=== PATIENT | female | born 1985 | race Caucasian/White ===

== ENCOUNTER 2019-07-23 09:00 | Outpatient (CLI) | payer BC, SELFPAY ==
[2019-07-23 09:48] LABS: Add Urine Microscopic? YES; Appearance Urine Cloudy (Clear); Bacteria Urine Trace /hpf; Bilirubin Urine Negative (Negative); Blood Urine 3+ (Negative); Color Urine Yellow (Yellow); Glucose Urine UA Negative (Negative); Ketones Urine Negative (Negative); Leukocyte Esterase Ur Negative LEU/UL (Negative); Mucus Urine Heavy /lpf; Nitrate Urine Negative (Negative); Protein Urine 1+ mg/dL (Negative); Squamous Epithelial Cell Urine Many /hpf (Few); Urobilinogen Urine Negative mg/dL (<2.0)
== END 2019-07-23 09:01 | disposition home or self-care (01) ==
LOC: ANHLAB 09:03
PROVIDERS: PCP Internal Medicine; Visit Provider Internal Medicine
DX: N39.0 Urinary tract infection, site not specified (principal)
CPT/HCPCS: 81001

== ENCOUNTER 2020-01-18 14:05 | Outpatient (CLI) | payer BC, SELFPAY ==
--- NOTE | 2020-01-18 14:23 | ECG_ITS ---
Measurements Intervals [place] Rate: 69 P: 37 [place]: 125 QRS: 29 QRSD: 92 T: 19 QT: 373 QTc: 401 Interpretive Statements SINUS RHYTHM MINIMAL Q WAVES- HIGH LATERAL LEADS BASELINE ARTIFACT- I, III, AVL BORDERLINE ECG Electronically Signed On 01-18-2020 14:39:49 CDT by Wyatt Casper D.O.
[2020-01-18 15:03] LABS: Basophils Absolute Auto 0.1 K/mm3 (0.0-0.1); Basophils Percent Auto 0.7 % (0.2-1.2); Eosinophils Absolute Auto 0.1 K/mm3 (0-0.3); Eosinophils Percent Auto 1.3 % (0-4.4); Hematocrit 38.7 % (37.0-47.0); Hemoglobin 12.9 g/dL (12.0-15.0); Immature Granulocyte Absolute 0.02 K/mm3 (0.00-0.031); Immature Granulocyte Percent A 0.3 % (0-0.5); Lymphocytes Absolute Auto 1.73 K/mm3 (0.9-3.2); Lymphocytes Percent Auto 24.1 % (18.3-44.2); Mean Corpuscular HGB Conc 33.3 g/dl (32-36); Mean Corpuscular Hemoglobin 31.4 pg (26-34); Mean Corpuscular Volume 94.2 fl (80-100); Mean Platelet Volume 12.2 fl (7.4-10.4); Monocytes Absolute Auto 0.5 K/mm3 (0.1-0.6); Monocytes Percent Auto 7.1 % (2.6-8.5); Neutrophils Absolute Auto 4.8 K/mm3 (1.3-6.7); Neutrophils Percent Auto 66.5 % (45.5-73.1); Platelet Count Result 248 k/mm3 (150-375); Red Blood Count 4.11 M/mm3 (4.2-5.4); White Blood Count 7.2 K/mm3 (4.5-10.0)
[2020-01-18 15:15] LABS: Alanine Aminotransferase 8 U/L (4-35); Albumin Level 3.7 g/dL (3.5-5.1); Alkaline Phosphatase 57 U/L (38-126); Anion Gap 5 mmol/L (8-16); Aspartate Amino Transferase 18 U/L (14-36); Bilirubin,Total 0.7 mg/dL (0.2-1.3); Blood Urea Nitrogen 10 mg/dL (7-17); Calcium 8.5 mg/dL (8.4-10.2); Carbon Dioxide 28 mmol/L (22-30); Chloride 104 mmol/L (98-107); Estimated Glomerular Filt Rate > 60; Glucose 96 mg/dL (65-105); Potassium 3.5 mmol/L (3.4-5.0); Sodium 137 mmol/L (137-145)
[2020-01-21 07:00] LABS: NIL 0.01 IU/mL; Quantiferon TB Plus, 1T NEGATIVE (NEGATIVE); TB2-NIL 0.01 IU/mL
== END 2020-01-18 14:06 | disposition home or self-care (01) ==
PROVIDERS: PCP Internal Medicine; Visit Provider Internal Medicine
DX: F41.9 Anxiety disorder, unspecified (principal); F32.3 Major depressive disorder, single episode, severe with psychotic features; F50.9 Eating disorder, unspecified; F50.89 Other specified eating disorder
CPT/HCPCS: 36415; 80053; 84443; 85025; 86480; 93005

== ENCOUNTER 2021-10-03 22:25 | Emergency (ER) | payer OTHER, SELFPAY ==
--- NOTE | ~2021-10-03 | XR_ITS ---
EXAMINATION: XR chest 2V DATE: 10/03/2021 23:07 INDICATION: Chest pain TECHNIQUE: frontal and lateral views of the chest were obtained. COMPARISON: Chest radiograph dated 11/07/2003 FINDINGS: The lungs remain clear with no focal airspace opacities, pulmonary edema, pleural effusion or pneumot horax. The cardiomediastinal silhouette is normal. Electronic device overlying the anterior chest wal l projects over the superior mediastinum on the frontal projection. IMPRESSION: 1. No acute cardiopulmonary disease. Reviewed, dictated and finalized at location A.
[2021-10-03 22:27] VITALS: BP 156/108; PULSE 95; RESP 16; TEMP 36.4; O2SAT 99
--- NOTE | 2021-10-03 22:35 | ECG_ITS ---
Measurements Intervals [place] Rate: 68 P: 26 [place]: 128 QRS: 4 QRSD: 98 T: 9 QT: 369 QTc: 393 Interpretive Statements SINUS RHYTHM VOLTAGE CRITERIA FOR LVH MINIMAL Q WAVES- HIGH LATERAL LEADS BORDERLINE T WAVE ABNORMALITY- INFERIOR LEADS BASELINE ARTIFACT- I, II, AVR, AVL, AVF BORDERLINE ECG Electronically Signed On 10-04-2021 7:05:44 CDT by Wyatt Casper D.O.
[2021-10-03 22:36] VITALS: BP 154/113; PULSE 73; RESP 20
[2021-10-03 22:37] VITALS: PULSE 72
--- NOTE | 2021-10-03 22:39 | ED.WEAKNESS ---
HPI - Weakness General Chief complaint: Weakness Stated complaint: Generalized weakness Time Seen by Provider: 10/03/21 22:39 Source: patient Mode of arrival: ambulatory Limitations: no limitations History of Present Illness HPI Narrative: Patient is a 35-year-old female with a history of long-haul COVID symptoms, initial infection in April 2021, presenting to the emergency department for evaluation of weakness with concern for dehydration patient states that she has been nauseated with 1 episode of emesis after dinner this evening. Patient states that this is consistent with her long-haul COVID symptoms and she usually needs to take Zofran on a daily basis for this. Patient reports daily chest pain over the past several weeks. She denies any severe chest pain at this time. Denies any jaw pain, neck pain, shoulder pain, back pain. Patient denies fever, chills, cough or dyspnea. No pleuritic pain. She denies leg swelling, calf pain. Patient is not on any oral control, she does not smoke and denies any history of coagulopathy. Patient denies any abdominal pain. She reports mild nausea. Patient states that she has been slightly lightheaded this evening, states that she believes it is secondary to decreased oral intake and decreased fluid intake. Patient is wearing a Holter monitor, is following with [facility] for long-haul COVID studies. She denies any palpitations. She reports mild headache without focal weakness or numbness. She denies any focal deficits. She has been ambulatory without syncopal event. She denies dysuria or hematuria. Related Data Home Medications Medication Instructions Recorded Confirmed amitriptyline 10 mg PO DAILY 10/03/21 10/03/21 ergocalciferol (vitamin D2) 1 unit PO WEEKLY 10/03/21 10/03/21 ondansetron HCl 4 mg PO DAILY 10/03/21 10/03/21 Allergies Allergy/AdvReac Type Severity Reaction Status Date / Time No Known Allergies Allergy Verified 10/03/21 22:31 Review of Systems Review of Systems: CONSTITUTIONAL: Denies fever, chills, or sweats. EYES: Denies visual changes, redness, or discharge. ENT: Denies rhinorrhea, congestion, sore throat, or otalgia. CARDIOVASCULAR: Reports chest pain without palpitations or edema RESPIRATORY: Denies cough or dyspnea. GASTROINTESTINAL: Denies abdominal pain, reports nausea and one episode of vomiting GENITOURINARY: Denies dysuria or hematuria. SKIN: Denies rash or itching. MUSCULOSKELETAL: Denies back pain, joint pain, or myalgia. NEUROLOGIC: Reports headache without focal numbness, reports feeling diffusely weak without focal weakness PMFSH Past Medical History Medical History (Updated 10/04/21 @ 00:52 by Mariela Plasencia MD) Anxiety Other specified eating disorder PTSD (post-traumatic stress disorder) Severe major depression with psychotic features UTI (urinary tract infection) Vitamin D deficiency, unspecified Family History Family History (Updated 12/23/18 @ 09:27 by DOCTOR UNKNOWN) Father Family history of chronic obstructive pulmonary disease Social History Social History Smoking status: Never smoker Alcohol intake: never Exam Narrative: GENERAL: Awake, alert, conversant HEAD: Normocephalic, atraumatic. EYES: PERRLA and EOMI. ENT: Nares clear, no rhinorrhea or epistaxis. Mucous membranes dry NECK: Supple. CHEST: No respiratory distress, breathing even and non labored HEART: Regular rate, sinus rhythm ABDOMEN: Obese, non distended, non tender in all 4 quadrants, no rebound, rigidity or guarding EXTREMITIES: Normal range of motion. No edema. SKIN: Warm, dry, no rash. NEURO:No focal deficits. Alert and oriented x3 Course Vital Signs Vital signs: Vital Signs Temperature 36.4 C L 10/03/21 22:27 Pulse Rate 95 10/03/21 22:27 Respiratory Rate 16 10/03/21 22:27 Blood Pressure 156/108 H 10/03/21 22:27 Pulse Oximetry 99 10/03/21 22:27
[2021-10-03 22:55] LABS: Basophils Absolute Auto 0.1 K/mm3 (0.0-0.1); Basophils Percent Auto 0.6 % (0.2-1.2); Eosinophils Absolute Auto 0.2 K/mm3 (0-0.3); Eosinophils Percent Auto 1.6 % (0-4.4); Hematocrit 39.4 % (37.0-47.0); Hemoglobin 12.8 g/dL (12.0-15.0); Immature Granulocyte Absolute 0.03 K/mm3 (0.00-0.031); Immature Granulocyte Percent A 0.3 % (0-0.5); Lymphocytes Absolute Auto 3.04 K/mm3 (0.9-3.2); Lymphocytes Percent Auto 27.2 % (18.3-44.2); Mean Corpuscular HGB Conc 32.5 g/dl (32-36); Mean Corpuscular Hemoglobin 30.3 pg (26-34); Mean Corpuscular Volume 93.4 fl (80-100); Mean Platelet Volume 11.8 fl (7.4-10.4); Monocytes Absolute Auto 0.8 K/mm3 (0.1-0.6); Neutrophils Absolute Auto 7.1 K/mm3 (1.3-6.7); Neutrophils Percent Auto 63.3 % (45.5-73.1); Platelet Count Result 254 k/mm3 (150-375); Red Blood Count 4.22 M/mm3 (4.2-5.4); Red Cell Distribution Width 13.4 % (11.5-14.5); White Blood Count 11.2 K/mm3 (4.5-10.0)
[2021-10-03] MEDS: SODIUM CHLORIDE 0.9% IV 1,000 ML 999 ML IV CONT (22:57)
[2021-10-03] MEDS: ONDANSETRON INJ 4 MG/2 ML VIAL IV PUSH (22:57)
[2021-10-03 23:04] LABS: Alanine Aminotransferase 14 U/L (4-35); Alkaline Phosphatase 62 U/L (38-126); Anion Gap 7 mmol/L (8-16); Aspartate Amino Transferase 27 U/L (14-36); Bilirubin,Total 0.5 mg/dL (0.2-1.3); Blood Urea Nitrogen 10 mg/dL (7-17); Calcium 8.5 mg/dL (8.4-10.2); Carbon Dioxide 26 mmol/L (22-30); Chloride 108 mmol/L (98-107); Estimated CRCL calculation 120 ml/min; Estimated Glomerular Filt Rate > 60; Glucose 102 mg/dL (65-110); Sodium 141 mmol/L (137-145)
[2021-10-03 23:08] LABS: Lipase 95 U/L (23-300)
[2021-10-03 23:19] LABS: Troponin I < 0.012 ng/mL (0.000-0.034)
[2021-10-04] MEDS: POTASSIUM CHLORIDE 20 MEQ TABLET 40 MEQ PO (00:06)
[2021-10-04 00:07] VITALS: BP 141/79; PULSE 75; RESP 18; O2SAT 100
[2021-10-04 00:47] LABS: Appearance Urine Clear (Clear); Bilirubin Urine 1+ (Negative); Color Urine Yellow (Yellow); Glucose Urine UA Negative (Negative); Ketones Urine Trace mg/dL (Negative); Leukocyte Esterase Ur Negative LEU/UL (Negative); Nitrate Urine Positive (Negative); Protein Urine Negative (Negative); Specific Grav Ur 1.025 (1.001-1.035); Urobilinogen Urine 0.2 mg/dL (<2.0); pH Urine 5.5 (5.0-9.0)
[2021-10-04 00:48] LABS: Add Urine Microscopic? YES; Blood Urine Trace (Negative)
[2021-10-04 01:39] VITALS: BP 136/87; PULSE 89; RESP 14; O2SAT 99
== END 2021-10-04 01:39 | disposition home or self-care (01) ==
PROVIDERS: Emergency Provider Emergency Medicine; PCP Internal Medicine
DX: E86.0 Dehydration (principal); R11.2 Nausea with vomiting, unspecified; U09.9 Post COVID-19 condition, unspecified; F41.9 Anxiety disorder, unspecified; F43.10 Post-traumatic stress disorder, unspecified; F32.3 Major depressive disorder, single episode, severe with psychotic features; E55.9 Vitamin D deficiency, unspecified; Z87.440 Personal history of urinary (tract) infections; R94.31 Abnormal electrocardiogram [ECG] [EKG]
CPT/HCPCS: 36415; 71046; 80053; 81001; 81025; 83690; 84484; 85025; 93005; 96361; 96365; 96374; 99284; A9270; J0696; J2405; J7030

== ENCOUNTER 2021-10-09 09:54 | Outpatient (CLI) | payer OTHER, SELFPAY ==
[2021-10-09 10:35] LABS: Alanine Aminotransferase 18 U/L (6-35); Albumin Level 3.8 g/dL (3.5-5.1); Alkaline Phosphatase 71 U/L (38-126); Anion Gap 6 mmol/L (8-16); Aspartate Amino Transferase 29 U/L (14-36); Bilirubin,Total 0.8 mg/dL (0.2-1.3); Blood Urea Nitrogen 11 mg/dL (7-17); Calcium 8.6 mg/dL (8.4-10.2); Carbon Dioxide 27 mmol/L (22-30); Chloride 108 mmol/L (98-107); Cholesterol 185 mg/dL (0-200); Estimated Glomerular Filt Rate > 60; Glucose 93 mg/dL (65-110); HDL Direct 39 mg/dL; Potassium 3.6 mmol/L (3.4-5.0); Sodium 141 mmol/L (137-145); Triglycerides 141 mg/dL (<150)
[2021-10-09 10:46] LABS: LDL Cholesterol Direct 101 mg/dL
== END 2021-10-09 09:55 | disposition home or self-care (01) ==
LOC: ANHLAB 09:57
PROVIDERS: PCP Internal Medicine; Visit Provider Internal Medicine
DX: F43.10 Post-traumatic stress disorder, unspecified (principal); F41.9 Anxiety disorder, unspecified; E78.2 Mixed hyperlipidemia
CPT/HCPCS: 36415; 80053; 80061; 84443

== ENCOUNTER 2021-12-01 15:23 | Outpatient (CLI) | payer OTHER, SELFPAY ==
[2021-12-01 15:37] LABS: Appearance Urine Clear (Clear); Bilirubin Urine 1+ (Negative); Blood Urine Negative (Negative); Color Urine Yellow (Yellow); Glucose Urine UA Negative (Negative); Ketones Urine Negative (Negative); Leukocyte Esterase Ur Trace LEU/UL (Negative); Nitrate Urine Negative (Negative); Protein Urine Trace mg/dL (Negative)
[2021-12-01 15:50] LABS: Bacteria Urine Trace /hpf; Mucus Urine Rare /lpf; RBC Urine 0-2 /hpf (0-2); Squamous Epithelial Cell Urine Moderate /hpf (Few)
[2021-12-01 15:51] LABS: Add Urine Microscopic? YES
== END 2021-12-01 15:24 | disposition home or self-care (01) ==
LOC: ANHLAB 15:24
PROVIDERS: PCP Internal Medicine; Visit Provider Internal Medicine
DX: N39.0 Urinary tract infection, site not specified (principal)
CPT/HCPCS: 81001; 87077; 87086; 87186

== ENCOUNTER 2022-08-13 22:22 | Emergency (ER) | payer OTHER, SELFPAY ==
--- NOTE | ~2022-08-13 | XR_ITS ---
Clinical Indication: Chest pain PA and lateral views of the chest: Comparison: 10/03/2021 Findings: The lungs are clear, without evidence of focal consolidation or pleural effusion. Cardiome diastinal silhouette is within normal limits. Bones and soft tissues are unremarkable. Impression: Normal chest. Reviewed, dictated and finalized at [facility]. Impression: Normal chest.
[2022-08-13 22:45] VITALS: BP 155/47; PULSE 98; RESP 16; TEMP 37.2; O2SAT 100
--- NOTE | 2022-08-13 22:47 | ECG_ITS ---
Measurements Intervals [place] Rate: 85 P: 19 [place]: 135 QRS: -1 QRSD: 87 T: 4 QT: 344 QTc: 410 Interpretive Statements SINUS RHYTHM VOLTAGE CRITERIA FOR LVH MINIMAL Q WAVES- HIGH LATERAL LEADS BASELINE ARTIFACT- I, II, AVR, AVL, V1 BORDERLINE ECG COMPARED TO ECG 10/03/2021 22:52:23 NO SIGNIFICANT CHANGES Electronically Signed On 08-14-2022 0:45:28 CDT by Wyatt Casper D.O.
[2022-08-13 23:02] LABS: Basophils Absolute Auto 0.1 K/mm3 (0.0-0.1); Basophils Percent Auto 0.5 % (0.2-1.2); Eosinophils Absolute Auto 0.2 K/mm3 (0-0.3); Eosinophils Percent Auto 2.2 % (0-4.4); Hematocrit 38.9 % (37.0-47.0); Hemoglobin 12.9 g/dL (12.0-15.0); Immature Granulocyte Absolute 0.04 K/mm3 (0.00-0.031); Immature Granulocyte Percent A 0.4 % (0-0.5); Lymphocytes Absolute Auto 3.61 K/mm3 (0.9-3.2); Lymphocytes Percent Auto 33.8 % (18.3-44.2); Mean Corpuscular HGB Conc 33.2 g/dl (32-36); Mean Corpuscular Hemoglobin 29.7 pg (26-34); Mean Corpuscular Volume 89.4 fl (80-100); Mean Platelet Volume 11.3 fl (7.4-10.4); Monocytes Absolute Auto 0.8 K/mm3 (0.1-0.6); Monocytes Percent Auto 7.4 % (2.6-8.5); Neutrophils Percent Auto 55.7 % (45.5-73.1); Platelet Count Result 239 k/mm3 (150-375); Red Blood Count 4.35 M/mm3 (4.2-5.4); Red Cell Distribution Width 13.9 % (11.5-14.5); White Blood Count 10.7 K/mm3 (4.5-10.0)
[2022-08-13 23:12] LABS: Alanine Aminotransferase 19 U/L (6-35); Albumin Level 3.9 g/dL (3.5-5.1); Alkaline Phosphatase 73 U/L (38-126); Anion Gap 7 mmol/L (8-16); Aspartate Amino Transferase 19 U/L (14-36); Bilirubin,Total 0.4 mg/dL (0.2-1.3); Blood Urea Nitrogen 14 mg/dL (7-17); Calcium 8.8 mg/dL (8.4-10.2); Carbon Dioxide 24 mmol/L (22-30); Chloride 110 mmol/L (98-107); Estimated CRCL calculation 145 ml/min; Estimated Glomerular Filt Rate > 60; Glucose 102 mg/dL (65-110); Lipase 97 U/L (23-300); Potassium 3.7 mmol/L (3.4-5.0); Sodium 141 mmol/L (137-145)
[2022-08-13 23:14] LABS: Prothrombin Time 12.4 Seconds (11.1-14.7)
[2022-08-13 23:15] LABS: Partial Thromboplastin Time 27.8 SECONDS (22.3-36.8)
[2022-08-13 23:24] LABS: Troponin I < 0.012 ng/mL (0.000-0.034)
[2022-08-14 02:02] VITALS: BP 138/99; PULSE 79; PULSE 82; RESP 20; O2SAT 100
[2022-08-14 02:04] VITALS: O2SAT 100
[2022-08-14 02:14] LABS: D Dimer 0.37 ug/mL (<0.48)
[2022-08-14 02:17] LABS: NT Pro B Type Natriuretic Pept 63 pg/mL (19.9-100)
[2022-08-14] MEDS: ALBUTEROL SULFATE NEB 2.5 MG/3 ML INH INHALATION (02:35)
[2022-08-14 02:36] VITALS: PULSE 79; RESP 20
[2022-08-14] MEDS: IPRATROPIUM BR 0.02% INH SOLN 0.5 MG/2.5 ML VIAL INHALATION (02:36)
[2022-08-14 02:46] VITALS: PULSE 67; RESP 20
[2022-08-14 02:58] LABS: Troponin I < 0.012 ng/mL (0.000-0.034)
--- NOTE | 2022-08-14 03:16 | ED.GENADULT ---
HPI - General Adult General Chief complaint: Chest Pain Stated complaint: chest pain, COVID+ 08/07 Time Seen by Provider: 08/14/22 02:05 History of Present Illness HPI narrative: Complaint of chest pain and shortness of breath. The patient reports she has history of COVID was diagnosed on 08 07 patient reports that she started having some discomfort in her chest and radiates to her back. The patient states she was concerned that she was COVID-19 positive. The patient reports no hypoxia patient reports no lower extremity edema the patient reports he is currently not on any antivirals. Patient does report that she has prior history of lung COVID from previous COVID Related Data Allergies Allergy/AdvReac Type Severity Reaction Status Date / Time No Known Allergies Allergy Verified 08/13/22 22:23 Review of Systems Review of Systems: A 10 system review of systems was completed on the patient and is negative except for what is stated in the HPI. Nursing and ancillary documentation was reviewed. PMFSH Past Medical History Medical History Anxiety Other specified eating disorder PTSD (post-traumatic stress disorder) Severe major depression with psychotic features UTI (urinary tract infection) Vitamin D deficiency, unspecified Family History Family History Father Family history of chronic obstructive pulmonary disease Social History Social History Smoking status: Never smoker Alcohol intake: never Substance use: never Substance use type: does not use Exam Narrative: GENERAL: Well-appearing, well-nourished, and in no acute distress. HEAD: Normocephalic, atraumatic. EYES: PERRLA and EOMI. ENT: Nares clear, no rhinorrhea or epistaxis. Mucous membranes moist. NECK: Supple. CHEST: Clear to auscultation. No respiratory distress. HEART: Regular rate and rhythm. No murmur heard. Normal peripheral pulses. ABDOMEN: Soft, nontender, nondistended, normal active bowel sounds. EXTREMITIES: Normal range of motion. No edema. SKIN: Warm, dry, no rash. NEURO: No focal deficits. Alert and oriented x3. PSYCH: Normal mood and affect. Course Vital Signs Vital signs: Vital Signs Temperature 37.2 C 08/13/22 22:45 Pulse Rate 98 08/13/22 22:45 Respiratory Rate 16 08/13/22 22:45 Blood Pressure 155/47 H 08/13/22 22:45 Pulse Oximetry 100 08/13/22 22:45 Oxygen Delivery Room Air 08/13/22 22:45 Temperature 37.2 C 08/13/22 22:45 Pulse Rate 67 08/14/22 02:46 Respiratory Rate 20 08/14/22 02:46 Blood Pressure 138/99 H 08/14/22 02:02 Pulse Oximetry 100 08/14/22 02:04 Oxygen Delivery Room Air 08/14/22 02:04 Medical Decision Making MDM Narrative Medical decision making narrative: Differential diagnosis includes COVID-pneumonia, PE, ACS, COVID-19 upper respiratory infection Laboratory studies were obtained which showed a white blood cell count of 10.7 electrolytes showed a normal creatinine troponin of less than 0.012 and a BNP of 63 D-dimer was 0.37 Chest x-ray showed no focal infiltrate Patient received a DuoNeb in the emergency department At this time the patient is considered low risk for pulmonary embolism as she has a negative D-dimer. Vital Signs Vital Signs: Vital Signs Temperature 37.2 C 08/13/22 22:45 Pulse Rate 98 08/13/22 22:45 Respiratory Rate 16 08/13/22 22:45 Blood Pressure 155/47 H 08/13/22 22:45 Pulse Oximetry 100 08/13/22 22:45 Oxygen Delivery Room Air 08/13/22 22:45 Temperature 37.2 C 08/13/22 22:45 Pulse Rate 67 08/14/22 02:46 Respiratory Rate 20 08/14/22 02:46 Blood Pressure 138/99 H 08/14/22 02:02 Pulse Oximetry 100 08/14/22 02:04 Oxygen Delivery Room Air 08/14/22 02:04 Lab Data 08/13/22 22:55 08/13/22 22:55
[2022-08-14 03:35] VITALS: BP 136/76; PULSE 81; RESP 24; O2SAT 100
== END 2022-08-14 03:41 | disposition home or self-care (01) ==
PROVIDERS: Emergency Provider Emergency Medicine; PCP Internal Medicine
DX: U07.1 COVID-19 (principal); J06.9 Acute upper respiratory infection, unspecified; R07.9 Chest pain, unspecified; E55.9 Vitamin D deficiency, unspecified; Z86.16 Personal history of COVID-19; Z87.891 Personal history of nicotine dependence; R94.31 Abnormal electrocardiogram [ECG] [EKG]
CPT/HCPCS: 36415; 71046; 80053; 83690; 83880; 84484; 85025; 85380; 85610; 85730; 93005; 94640; 99284

== ENCOUNTER 2022-10-03 07:42 | Outpatient (CLI) | payer OTHER, SELFPAY ==
--- NOTE | ~2022-10-03 | MR_ITS ---
MRI of the left shoulder Technique: Axial proton-density fat-sat images, coronal proton density fat-sat and T2 fat-sat images, and sagittal T1-weighted and T2 fat-sat images were acquired. Clinical History: Pain Findings: No significant degenerative change at the AC joint. No subacromial spur. Coracoclavicular, coracoacromial, and coracohumeral ligaments are intact. Supraspinatus and infraspinatus tendons are intact, without partial or full-thickness tear. Subscapul lesly tendon is intact. Tendon of long head of the biceps is intact. Glenoid labrum is intact, without evidence of tear. Inferior glenohumeral ligament is intact. Minimal glenohumeral joint effusion present. No degenerativ e change of the glenohumeral joint. No fluid distention of the subacromial/subdeltoid bursa. No muscl e atrophy or edema identified. Impression: No significant abnormality seen. Reviewed, dictated and finalized at [facility]. Impression: No significant abnormality seen.
== END 2022-10-03 07:43 | disposition home or self-care (01) ==
LOC: ANHIMG 07:46
PROVIDERS: PCP Family Medicine; Visit Provider Nurse Practitioner
DX: S46.912A Strain of unspecified muscle, fascia and tendon at shoulder and upper arm level, left arm, initial encounter (principal); M25.512 Pain in left shoulder; X58.XXXA Exposure to other specified factors, initial encounter
CPT/HCPCS: 73221

== ENCOUNTER 2022-10-28 13:53 | Emergency (ER) | payer OTHER, SELFPAY ==
[2022-10-28 14:01] VITALS: BP 140/82; PULSE 76; RESP 20; TEMP 37.3; O2SAT 99
--- NOTE | 2022-10-28 14:16 | ED.GENADULT ---
HPI - General Adult General Chief complaint: Urogenital-Female Stated complaint: UTI Source: patient Mode of arrival: ambulatory Limitations: no limitations History of Present Illness HPI narrative: patient presents for evaluation of urinary symptoms for last 2 days. Symptoms include dysuria, sensation of incomplete emptying, and discomfort in her bladder region. No fever, chills, nausea, vomiting, low back pain, vaginal bleeding or discharge. LMP 2 weeks ago. She believes she has a UTI. Related Data Allergies Allergy/AdvReac Type Severity Reaction Status Date / Time No Known Allergies Allergy Verified 10/28/22 13:54 Review of Systems Review of Systems: CONSTITUTIONAL: Denies fever, chills, or sweats. EYES: Denies visual changes, redness, or discharge. ENT: Denies rhinorrhea, congestion, sore throat, or otalgia. CARDIOVASCULAR: Denies chest pain, palpitations, or edema. RESPIRATORY: Denies cough or dyspnea. GASTROINTESTINAL: Denies abdominal pain, nausea, vomiting, or diarrhea. GENITOURINARY: Reports dysuria, incomplete emptying, and discomfort in the bladder region. Denies other urinary symptoms, vaginal bleeding or discharge SKIN: Denies rash or itching. MUSCULOSKELETAL: Denies back pain, joint pain, or myalgia. NEUROLOGIC: Denies headache, numbness, dizziness, or weakness. PSYCHIATRIC: Denies anxiety or depression. [facility] Past Medical History Medical History Anxiety Impingement of left shoulder Other specified eating disorder PTSD (post-traumatic stress disorder) Severe major depression with psychotic features UTI (urinary tract infection) Vitamin D deficiency, unspecified Surgical History Surgical History History of History of cholecystectomy History of tonsillectomy Family History Family History Father Family history of chronic obstructive pulmonary disease Mother Asthma Diabetes mellitus Social History Social History Smoking status: Never smoker Alcohol intake: never Substance use: never Substance use type: does not use Lack of Transportation: No Lack of Food: Never True Current Housing: I Have Housing Concerned About Future Housing: No Difficulty Paying Gas/Electric Bills: No Difficulty Paying for Meds: No Currently Unemployed: No Education: Decline to Answer Difficulty w/ Childcare or Family Care: No Living arrangements: with family Occupation/Education: occupation 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 HEAD: Normocephalic, atraumatic. EYES: PERRLA and EOMI. ENT: Nares clear, no rhinorrhea or epistaxis. Mucous membranes moist. Oropharynx without tonsillar hypertrophy exudate or other lesions. Bilateral TMs pearly melchor nonbulging NECK: Supple. No adenopathy or masses. No carotid bruits or JVD CHEST: Clear to auscultation. No respiratory distress. No wheezes rales or rhonchi HEART: Regular rate and rhythm. No murmur heard. Normal peripheral pulses. ABDOMEN: Soft, nontender, nondistended, normal active bowel sounds. EXTREMITIES: Normal range of motion. No edema. SKIN: Warm, dry, no rash. NEURO: No focal deficits. Alert and oriented x3. PSYCH: Normal mood and affect. Course Course Emergency Course: This is a 37 yr old female here today with complaints of urinary symptoms. Urine is consistent with UTI. Will treat with Macrobid and Pyridium. Increase hydration. Send urine for culture. Follow-up with primary provider. Go to the ER for worsening symptoms. Patient in agreement with plan of care Level of Care: Express Care Visit Vital Signs Vital signs: Vital Signs [place]
== END 2022-10-28 14:15 | disposition home or self-care (01) ==
PROVIDERS: Emergency Provider Nurse Practitioner; PCP Family Medicine
DX: N30.00 Acute cystitis without hematuria (principal)
CPT/HCPCS: 81003; 87077; 87086; 87186; 99213; G0463

== ENCOUNTER 2023-05-21 11:57 | Emergency (ER) | payer OTHER, SELFPAY ==
[2023-05-21 12:04] VITALS: BP 148/91; PULSE 78; RESP 16; TEMP 37.4; O2SAT 100
[2023-05-21 12:06] VITALS: BP 148/91; PULSE 78; RESP 16; TEMP 37.4; O2SAT 100
--- NOTE | 2023-05-21 12:12 | ED.URI ---
HPI - URI/Sore Throat General Chief Complaint: Upper Respiratory Infection Stated Complaint: Sore Throat History of Present Illness HPI Narrative: 37-year-old female presented for complaint of sore throat, body aches, fever, chills. Temp up to 101. Onset 2 days. Son is treated for strep, dx 2 days ago. denies shortness of breath, wheezing, nausea, vomiting, diarrhea or lethargy. She took Motrin for symptoms. Related Data Home Medications Medication Instructions Recorded Confirmed No Home Medications 05/21/23 05/21/23 Allergies Allergy/AdvReac Type Severity Reaction Status Date / Time No Known Allergies Allergy Verified 05/21/23 12:05 Review of Systems Review of Systems: CONSTITUTIONAL: reports body aches, fever, chills EYES: Denies visual changes, redness, or discharge. ENT: Reports sore throat Denies rhinorrhea, congestion, or otalgia. CARDIOVASCULAR: Denies chest pain, palpitations, or edema. RESPIRATORY: Denies dyspnea. GASTROINTESTINAL: Denies abdominal pain, nausea, vomiting, or diarrhea. SKIN: Denies rash, itching, or wounds. MUSCULOSKELETAL: Denies back pain, joint pain NEUROLOGIC: Denies headache PMFSH Past Medical History Medical History Anxiety Impingement of left shoulder Other specified eating disorder PTSD (post-traumatic stress disorder) Severe major depression with psychotic features UTI (urinary tract infection) Vitamin D deficiency, unspecified Surgical History Surgical History History of History of cholecystectomy History of tonsillectomy Family History Family History Father Family history of chronic obstructive pulmonary disease Mother Asthma Diabetes mellitus Social History Social History Smoking status: Never smoker Alcohol intake: never Substance use: never Substance use type: does not use Lack of Transportation: No Lack of Food: Never True Current Housing: I Have Housing Concerned About Future Housing: No Difficulty Paying Gas/Electric Bills: No Difficulty Paying for Meds: No Currently Unemployed: No Education: Decline to Answer Difficulty w/ Childcare or Family Care: No Living arrangements: with family Occupation/Education: occupation 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 EYES: conjunctivae clear ENT: Mucous membranes moist. TMs pearly melchor with normal light reflex bilaterally; no tragal tenderness. Oropharynx not erythematous, without lesions; Tonsils absent. No drooling, no hoarseness, no trismus, uvula midline. No tripod positioning, hot potato voice, or soft palate swelling. NECK: Supple. No lymphadenopathy CHEST: Clear to auscultation, breath sounds equal. No respiratory distress, speaks in full sentences. HEART: Regular rate and rhythm. No murmur heard. SKIN: Warm, dry, no rash. NEURO: Alert and oriented x3. Course Course Emergency Course: Patient is aware of diagnosis, understands and agrees to treatment plan. Anticipatory guidance given. Patient agrees to follow-up as directed and is aware of reasons to seek care at the emergency department. Portions of this record may have been created with voice recognition software Level of Care: Express Care Visit Vital Signs Vital signs: Vital Signs Temperature 99.3 F 05/21/23 12:04 Pulse Rate 78 05/21/23 12:04 Respiratory Rate 16 05/21/23 12:04 Blood Pressure 148/91 H 05/21/23 12:04 Pulse Oximetry 100 05/21/23 12:04 Oxygen Delivery Room Air 05/21/23 12:04 Temperature 99.3 F 05/21/23 12:06 Pulse Rate 78 05/21/23 12:06 Respiratory Rate 16 05/21/23 12:06 Blood Pressure 148/91 H 05/21/23 12:06
== END 2023-05-21 12:45 | disposition home or self-care (01) ==
PROVIDERS: Emergency Provider Nurse Practitioner Family; PCP Family Medicine
DX: J06.9 Acute upper respiratory infection, unspecified (principal); Z20.822 Contact with and (suspected) exposure to COVID-19
CPT/HCPCS: 87081; 87426; 87804; 87880; 99213; C9803; G0463

== ENCOUNTER 2024-11-24 07:47 | Outpatient (CLI) | payer OTHER, SELFPAY ==
[2024-11-24 08:44] LABS: Hematocrit 38.1 % (37.0-47.0); Hemoglobin 11.6 g/dL (12.0-15.0); Mean Corpuscular HGB Conc 30.4 g/dl (32-36); Mean Corpuscular Hemoglobin 28.6 pg (26-34); Mean Corpuscular Volume 94.1 fl (80-100); Platelet Count Result 248 k/mm3 (150-375); Red Blood Count 4.05 M/mm3 (4.2-5.4); Red Cell Distribution Width 15.3 % (11.5-14.5); White Blood Count 8.7 K/mm3 (4.5-10.0)
[2024-11-24 08:53] LABS: Alanine Aminotransferase 17 U/L (6-35); Albumin Level 3.6 g/dL (3.5-5.1); Alkaline Phosphatase 64 U/L (38-126); Anion Gap 6 mmol/L (4-12); Aspartate Amino Transferase 24 U/L (14-36); Bilirubin,Total 0.4 mg/dL (0.2-1.3); Blood Urea Nitrogen 10 mg/dL (7-17); Calcium 8.6 mg/dL (8.4-10.2); Carbon Dioxide 25 mmol/L (22-30); Chloride 109 mmol/L (98-107); Estimated Glomerular Filt Rate > 60; Glucose 96 mg/dL (65-110); Sodium 140 mmol/L (137-145); Total Protein 6.6 g/dL (6.3-8.2)
[2024-11-24 13:10] LABS: Hemoglobin A1C 4.8 % (<5.7)
== END 2024-11-24 07:48 | disposition home or self-care (01) ==
LOC: ANHLAB 07:48
PROVIDERS: PCP Nurse Practitioner Family; Visit Provider Nurse Practitioner Family
DX: R00.2 Palpitations (principal)
CPT/HCPCS: 36415; 80053; 83036; 84443; 85027

== ENCOUNTER 2024-12-02 09:07 | Outpatient (CLI) | payer OTHER, SELFPAY ==
--- NOTE | ~2024-12-02 | US_ITS ---
US soft tissue upper back 12/02/2024 09:33 Indication: Benign lipomatous neoplasm. Left upper back. Procedure: High-resolution Limited ultrasound of the left back in the area of palpable concern Comparison: No prior studies for comparison. Findings: There is an oval hypoechoic mass with horizontally oriented striations in the area of palpa ble concern measuring 5.1 x 1.5 x 5 cm. This mass is encapsulated. No significant internal vascularit y. There is subtle posterior acoustic enhancement. Impression: 1: Encapsulated parallel oriented hypoechoic 5.1 cm soft tissue mass in the area of palpable concern with sonographic characteristics compatible with lipoma. Recommend follow-up ultrasound as clinically warranted. Reviewed, dictated and finalized at location A. Impression: 1: Encapsulated parallel oriented hypoechoic 5.1 cm soft tissue mass in the are a of palpable concern with sonographic characteristics compatible with lipoma. Recommend follow-up ultrasound as clinically warranted.
== END 2024-12-02 09:08 | disposition home or self-care (01) ==
LOC: MICIMG 09:07
PROVIDERS: PCP Nurse Practitioner Family; Visit Provider Nurse Practitioner Family
DX: D17.9 Benign lipomatous neoplasm, unspecified (principal)
CPT/HCPCS: 76604

== ENCOUNTER 2025-01-06 15:18 | Outpatient (CLI) | payer OTHER, SELFPAY ==
--- OUTSIDE RECORDS SUMMARY | 2025-01-06 15:28 | XMS_ITS | Clinical Summary ---
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 Gender Identity Not on file Sexual Orientation Not on file Plan of Treatment Health Maintenance Due Date Last Done Comments Hepatitis C Virus (HCV) Screening 1984 TdaP Immunization 1984 Hepatitis B Immunization (1 of 3 - 19+ 3-dose series) 10/05/2003 Pap Smear 2005 Human Papillomavirus (HPV) Immunization (1 - 3-dose SCDM series) 10/05/2011 Cervical Cancer Screening (CCS) 2014 HPV/Cotest 2014 SARS-COV-2 Immunization ( season) 2024 08/09/2020 Influenza Immunization (#1) 2025 Respiratory Syncytial Virus (RSV) Immunization (Adult) (1 - 1-dose 75+ series) 10/05/2059 Meningococcal Immunization (ACWY) Aged Out No longer eligible based on patient's age to complete this topic Pneumococcal Immunization Combined Aged Out No longer eligible based on patient's age to complete this topic Rotavirus Immunization Aged Out No lo nger eligible based on patient's age to complete this topic
--- OUTSIDE RECORDS SUMMARY | 2025-01-06 15:28 | XMS_ITS | Clinical Summary ---
Author Organization [facility] Address [address] [place] [id number] Care Team Providers Care Photolettering Machine Operator Name Role Phone Guy Hdez MD Primary Care Provider [phone] Jazlyn Peters OT Unavailable [phone] Allergies No known active allergies Medications ondansetron (ZOFRAN) 4 mg tablet 08/14/2021 Active SUMAtriptan (IMITREX) 50 mg tablet 10/09/[address] (CYMBALTA) 30 mg capsule Take 1 capsule (30 mg total) by mouth daily 30 capsule 11 11/16/2021 Active BD Insulin Syringe 1 mL 25 gauge x 5/8 syringe 12/22/2021 Active zinc 50 mg tablet Take by mouth Active Active Problems Problem Noted Date Diagnosed Date Long COVID 12/14/2021 Other constipation 12/14/2021 Loss of smell 12/14/2021 Surgical History Surgery Date Site/Laterality Comments CHOLECYSTECTOMY SECTION x3 TONSILLECTOMY Medical History Medical History Date Comments Migraine PTSD (post-traumatic stress disorder) OCD (obsessive compulsive disorder) MDD (major depressive disorder) Eating disorder, unspecified type Other Specified Feeding or Eating Disorder Pelvic fracture (HCC) 2006 CARLOS (generalized anxiety disorder) Covid 04/2021 Family History Medical History Relation Name Comments No Known Problems Brother 1 No Known Problems Brother 2 COPD Father Mahin guthrie Asthma Mother Lizz celis Diabetes Mother Lizz celis Heart defect Mother Lizz celis Migraines Mother Lizz celis Stroke Mother Lizz celis No Known Problems Son 1 No Known Problems Son 2 No Known Problems Son 3 Relation Name Status Comments Brother 1 Alive Brother 2 Alive Father Mahin guthrie Alive Mother Lizz celis Son 1 Alive Son 2 Alive Son 3 Alive Social History Tobacco Use Types Packs/Day Years Used Date Smoking Tobacco: Never Smokeless Tobacco: Never AUDIT-C Answer Date Recorded Q1: How often do you have a drink containing alcohol? Never 12/14/2021 Q2: How many drinks containi ng alcohol do you have on a typical day when you are drinking? Patient does not drink Q3: How often do you have si x or more drinks on one occasion? Never 12/14/2021 Personal Safety Answer Date Recorded Getting School Help Needed Not on file 07/28 Comments Unknown Sex and Gender Information Value Date Recorded Sex Assigned at Not on file Legal Sex Female 1:13 AM OPERATOR SPECIALIST COMMUNICATIONS Gender Identity Female 10/15/2021 7:06 PM CDT Sexual Orientation Straight 10/15/2021 7: 06 PM CDT Obstetrics History Last Filed Vital Signs Vital Sign Reading Time Taken Comments Blood Pressure 150/102 05/02/2022 8:57 AM OPERATOR SPECIALIST COMMUNICATIONS at end of session Pulse 65 03/19/2022 2:03 PM CDT Temperature 36.5 C (97.7 F) 01/08/2022 10:21 AM CDT Respiratory Rate 18 01/08/2022 10:2 1 AM CDT Oxygen Saturation 98% 03/19/2022 2:0 3 PM CDT Inhaled Oxygen Concentration - - Weight 125.6 kg (277 lb) 01/08/2022 10: 21 AM CDT Height 168.9 cm (5' 6.5) 01/26/2022 8: 36 AM CDT Body Mass Index 43.38 01/08/2022 10:21 AM CDT Plan of Treatment Health Maintenance Due Date Last Done Comments Breast Cancer Screening-Mammogram 1984 Cervical Cancer Screening 1984 Depression Screening 1984 Hepatitis C Screening 1984 DTaP/Tdap/Td Vaccine (1 - Tdap) 10/05/1995 Varicella Vaccines (1 of 2 - 13+ 2-dose series) 1997 Hepatitis B Screening 2002 Regular Well Visit/Exam 18-64 2002 HPV Vaccines (1 - 3-dose SCD M series) 10/05/2011 Covid-19 Vaccine (3 - 2024-2 5 season) 2024 06/13/2021, 08/09/2020 Influenza Vaccine (#1) 2025 Pneumococcal vaccine <65 Aged Out No longer eligible based on patient's age to complete this topic [facility] O [facility] O Care Teams Photolettering Machine Operator Relationship Specialty Start Date End Date Guy Hdez MD [address] [place] [address] PCP - General Internal Medicine 08/15/21 Jazlyn Peters OT [address] [facility] [address] [facility] [address] [place] [address] Occupational Therapist Occupational Therapy 02/09/22
[2025-01-06 15:52] LABS: Hematocrit 38.8 % (37.0-47.0); Hemoglobin 11.9 g/dL (12.0-15.0); Immature Granulocyte Percent A 0.4 % (0-0.5); Lymphocytes Absolute Auto 2.57 K/mm3 (0.9-3.2); Mean Corpuscular HGB Conc 30.7 g/dl (32-36); Mean Corpuscular Hemoglobin 29.1 pg (26-34); Mean Corpuscular Volume 94.9 fl (80-100); Nucleated Red Blood Cells Absolute Auto 0.000 K/mm3 (0.0-0.012); Nucleated Red Blood Cells Perc 0.0 % (0.0-0.2); Platelet Count Result 272 k/mm3 (150-375); Red Blood Count 4.09 M/mm3 (4.2-5.4); White Blood Count 11.2 K/mm3 (4.5-10.0)
== END 2025-01-06 15:19 | disposition home or self-care (01) ==
LOC: ANHSURGERY 15:22
PROVIDERS: Visit Provider Surgery
DX: R22.2 Localized swelling, mass and lump, trunk (principal)
CPT/HCPCS: 36415; 85025

== ENCOUNTER 2025-01-14 01:41 | Day surgery (SDC) | payer OTHER, SELFPAY ==
[2025-01-05 10:51] VITALS: BMI 47.4
--- NOTE | 2025-01-05 10:59 | PC.NURSE ---
Report to the Outpatient Waiting Room, entrance under the green pavilion located off [facility], at time _1100_ on date _[id number]_. Planned Procedure Time: _1pm_.? Time changes happen often and if your time is changed the preop area will call you the afternoon before. - You and your visitor will be asked to self-screen and do not enter if you have any COVID symptoms. Please call surgeon if you need to reschedule. - A mask is optional within the hospital at this time. Patients may have clear liquids (water, carbonated beverages, clear teas, apple juice) until 3 hours prior to surgery with a maximum of 20 ounces. - No food from midnight until time of surgery and no smoking, or chewing tobacco (or any form of nicotine). No chewing gum, candy or mints. Take only the following medications with a SIP of water on the morning of surgery: ___None____ DO NOT STOP ANY OF YOUR OTHER PRESCRIPTION MEDICATIONS PRIOR TO SURGERY EXCEPT THE FOLLOWING Hold all vitamins and supplements for 3 days per anesthesiologist. Medications to discontinue per physician Date to take last dose Please no make-up, nail english, hairspray, perfume, deodorant, or body powder the day of surgery.? No jewelry (including any body piercings) or valuables the day of surgery, leave them at home.? Please take a shower or bath the night before, or the morning of, surgery with an antibacterial soap.? Wear comfortable, loose fitting clothing.? - Jewelry must be removed prior to entering the operating room.? Rings and piercings that are not removed may be cut off. - The hospital will not accept responsibility for valuables.? - Please leave all valuables, including medications, at home the day of surgery. If you are going home after surgery, a licensed driver's license reviewing officer must drive you home.? - NO public transportation without another adult if you receive anesthesia. - We recommend that an adult stay with you for 24 hours following discharge. - We also recommend that you do not drive, make important decision, drink alcoholic beverages, or take any drugs that were not prescribed by your health care provider for at least 24 hours after your discharge time. Follow any additional instructions given to you from your surgeon. Telephone instructions given to __Rachel__and asked if any additional questions and then verbalized understanding. Patient advised to call surgeon office or pre surgery nurse liaison [phone] if any additional questions.
[2025-01-14] VITALS (7 sets, daily range): BP systolic 136–158; BP diastolic 90–100; PULSE 69–99; RESP 16–19; TEMP 36.6–37.2; O2SAT 100
--- OUTSIDE RECORDS SUMMARY | 2025-01-14 01:45 | XMS_ITS | Clinical Summary ---
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 Gender Identity Female 10/15/2021 7:06 PM CDT Sexual Orientation Straight 10/15/2021 7: 06 PM CDT Obstetrics History Last Filed Vital Signs Vital Sign Reading Time Taken Comments Blood Pressure 150/102 05/02/2022 8:57 AM STORAGE BATTERY INSPECTOR at end of session Pulse 65 03/19/2022 2:03 PM CDT Temperature 36.5 C (97.7 F) 01/08/2022 10:21 AM CDT Respiratory Rate 18 01/08/2022 10:2 1 AM CDT Oxygen Saturation 98% 03/19/2022 2:0 3 PM CDT Inhaled Oxygen Concentration - - Weight 125.6 kg (277 lb) 01/08/2022 10: 21 AM CDT Height 168.9 cm (5' 6.5) 01/26/2022 8 :36 AM CDT Body Mass Index 43.38 01/08/2022 [...] age to complete this topic Insurance [facility] O [facility] O Care Teams Tax Professional Relationship Specialty Start Date End Date Guy Hdez MD [address] [place] [address] PCP - General Internal Medicine 08/15/21 Jazlyn Peters OT [address] [facility] 120 [facility] [address] [place] [address] Occupational Therapist Occupational Therapy 02/09/22
--- OUTSIDE RECORDS SUMMARY | 2025-01-14 01:45 | XMS_ITS | Clinical Summary ---
Author Organization [facility] Care Team Providers Care Sales Consultant Name Role Phone Unavailable Primary Care Provider Unavailabl e Social History Tobacco Use Types Packs/Day Years Used Date Smoking Tobacco: Never Assessed Comments Unknown Sex and Gender Information Value Date Recorded Sex Assigned at Not on file Legal Sex Female 9:19 AM COLLECTION MANAGER Gender Identity Not on file Sexual Orientation [...]
--- NOTE | 2025-01-14 13:23 | P.PNAN_ITS ---
Anes - Initial Pre Proc Eval Procedure: Operation Date: 01/14/25 13:00 Proposed Procedures p Excision Subcutaneous Mass of Back - Nathan Nguyen MD Date/Time: 01/14/25 13:23 Surgeon: Nathan Nguyen MD Pre Op Diagnosis: Subcutaneous mass Back Patient Data Age: 39 Gender: F Height: 1.7 m Weight: 154.16 kg Last Vital Signs Temp 99.0 F 01/14/25 12:20 Pulse 91 01/14/25 12:20 Resp 16 01/14/25 12:20 BP 153/93 H 01/14/25 12:20 Pulse Ox 100 01/14/25 12:20 O2 Del Method Room Air 01/14/25 12:20 Allergies Allergy/AdvReac Type Severity Reaction Status Date / Time No Known Allergies Allergy Verified 01/14/25 12:15 Home Medications ?Medication ?Instructions ?Recorded ?Confirmed ?Type No Home Medications 12/17/24 01/05/25 History Patient hx anesthesia problems: none Family hx anesthesia problems: none Results Review: All pre-operative results and documents have been reviewed as part of the pre- operative evaluation. [facility] Past Medical History Medical History (Updated 12/17/24 @ 09:31 by Dory Christie CMA) Impingement of left shoulder Other specified eating disorder Anxiety UTI (urinary tract infection) PTSD (post-traumatic stress disorder) Severe major depression with psychotic features Vitamin D deficiency, unspecified Surgical History Surgical History (Updated 12/17/24 @ 08:53 by Cheryl Metzger, PCT) History of cholecystectomy 2005 History of tonsillectomy 2004 History of x3 2008 2010 2013 Family History Family History (Updated 12/17/24 @ 08:54 by Cheryl Metzger PCT) Father Family history of chronic obstructive pulmonary disease Mother Asthma Diabetes mellitus Heart disease Cerebrovascular accident Grandparent Heart disease Breast cancer Lung cancer Social History Social History (Updated 12/17/24 @ 08:55 by RICHAR Cornejo) Smoking status: Never smoker Alcohol intake: never Substance use: never Substance use type: does not use Do You Feel Safe in your Home?: Yes Lack of Transportation: No Lack of Food: Never True Current Housing: I Have Housing Concerned About Future Housing: No Difficulty Paying Gas/Electric Bills: No Difficulty Paying for Meds: No Currently Unemployed: No Education: Decline to Answer Difficulty w/ Childcare or Family Care: No Living arrangements: with family Occupation/Education: occupation 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 Informed Consent: The patient's anesthetic plan and its attendant risks and benefits were discussed with the patient/family/POA. Questions were solicited and answers provided to the satisfaction of the patient/family/POA.
--- NOTE | 2025-01-14 13:23 | WPDHPUPDATE1 ---
History and Physical Update Update Date/Time: 01/14/25 13:23 History and Physical has been reviewed, including an updated exam of the patient. There are NO changes in the patient's condition. Risks, benefits, and alternatives have been discussed and questions answered. Patient agrees to proceed with procedure.
[2025-01-14] MEDS: ceFAZolin 3 GM/D5W 100 ML 100 ML IVPB (13:37)
[2025-01-14] MEDS: BUPIVACAINE/EPINEPHRINE 0.5% 50 ML VIAL 30 ML INFILTRATE (13:37)
--- NOTE | 2025-01-14 14:13 | S_PTH ---
PATIENT: Kenia Parsons LOC: [facility] U#:[id number] AGE/SX: 39/F ROOM: RE01/14/[address]: Nathan Nguyen MD : 1985 BED: DIS: 01/14/2025 SPEC #: [id number] RECD: 01/15/25 08:33 STATUS: TASHA REQ #: [id number] HADLEY: 01/14/25 14:[address]: Nathan Nguyen DEPT: [facility] Surgical RECD BY: Justina Sheridan ENTERED: 01/15/25 08:33 SP TYPE: Surgical OTHR DR: SHIPPING LEAD PERSON PHYSICIAN Tissues: A - Mass Procedures: Hematoxylin and Eosin Stain Gross and Microscopic Level 3
[2025-01-14] MEDS: LACTATED RINGERS 1,000 ML 30 ML IV CONT (14:35)
--- NOTE | 2025-01-14 14:35 | P.OP_ITS ---
Procedure Note - Detailed Date of Procedure 01/14/25 Pre-op Diagnosis Subcutaneous mass Back Post-op Diagnosis Same Procedure Performed Excision 5.1 cm subcutaneous mass left mid back with no margin Surgeon Nathan Nguyen MD Validation Software Facilitator Naida Sparks [facility] Anesthesia General and Local Indications Patient noticed a mobile subcutaneous mass to the left of the spine on her back. It is occasionally painful when she leans on it. She had an ultrasound which showed a 5.1 cm subcutaneous mass consistent with a lipoma. She is taken to surgery now for excision. Findings Patient had a 5.1 x 3.6 x 3.5 cm subcutaneous mass consistent with a lipoma. It did extend down to the trapezius fascia. Description of Procedure Patient was checked in the preoperative area. The position of the mass and the anticipated incision were marked on the skin. She was taken to the operating room and induced into general anesthesia. She was then placed in prone position. The area of the anticipated surgery was prepped and draped. Local was infiltrated in the area of the proposed incision as well as in the deeper subcutaneous around the area of the mass. Incision was made and deepened through the superficial subcutaneous. Just below Tarun's fascia we encountered the mass which had the appearance of a lipoma. Careful dissection was performed and the mass was dissected free from the deep subcutaneous and off the trapezius muscle. Any remaining attachments were divided and the mass was removed. It was measured with the above dimensions. No margin was taken around the mass. Cautery was used for hemostasis. I carefully inspected the wound for any residual lipoma. None was seen. I infiltrated additional local into the wound particularly on to the trapezius muscle. The wound was then closed in layers using 4-0 Vicryl suture. The skin was closed with running 4-0 Monocryl skin suture. The wound was dressed with Exofin surgical adhesive. Patient was then returned to a supine position. She was awakened and extubated. She was taken to recovery in good condition. Sponge needle counts were correct x2. Estimated Blood Loss -2 Drains No Packing No Pathology Yes (Subcutaneous mass of the back) Complications None Condition Stable Disposition PACU [facility] Billing Surgery - Charge Forward: Surgery Billing (Excision 5.1 cm subcutaneous mass of the back with no margin)
[2025-01-14] MEDS: ACETAMINOPHEN 500 MG TABLET 1000 MG PO (15:31)
== END 2025-01-14 16:12 | disposition home or self-care (01) ==
PROVIDERS: Visit Provider Surgery
PROC: (CPT 21931; principal; 2025-01-14 13:00)
DX: D17.1 Benign lipomatous neoplasm of skin and subcutaneous tissue of trunk (principal); G89.18 Other acute postprocedural pain; E55.9 Vitamin D deficiency, unspecified; F41.9 Anxiety disorder, unspecified; F43.10 Post-traumatic stress disorder, unspecified; F50.89 Other specified eating disorder; F32.3 Major depressive disorder, single episode, severe with psychotic features; E66.01 Morbid (severe) obesity due to excess calories; Z68.43 Body mass index [BMI] 50.0-59.9, adult; Z98.890 Other specified postprocedural states; Z90.49 Acquired absence of other specified parts of digestive tract; Z80.3 Family history of malignant neoplasm of breast; Z80.1 Family history of malignant neoplasm of trachea, bronchus and lung; Z82.49 Family history of ischemic heart disease and other diseases of the circulatory system
CPT/HCPCS: 21931; 88304; A9270; J0690; J2003; J2250; J2405; J2704; J3010; J7120

== ENCOUNTER 2025-04-01 09:30 | Outpatient (CLI) | payer OTHER, SELFPAY ==
--- OUTSIDE RECORDS SUMMARY | 2025-04-01 10:15 | XMS_ITS | Clinical Summary ---
Author Organization [facility] Address [address] [place] [address] Care Team Providers Care Louver Door Assembler Name Role Phone Guy Hdez MD Primary Care Provider [phone] Jazlyn Peters OT Unavailable [phone] Allergies No known active allergies Medications ondansetron [...] on file Legal Sex Female 1:13 AM MAINTENANCE SPECIALIST Gender Identity Female 10/15/2021 7:06 PM CDT Sexual Orientation Straight 10/15/2021 7: 06 PM CDT Obstetrics History Last Filed Vital Signs Vital Sign Reading Time Taken Comments Blood Pressure 150/102 05/02/2022 8:57 AM MAINTENANCE SPECIALIST at end of session Pulse 65 03/19/2022 [...] M series) 10/05/2011 Covid-19 Vaccine (3 - 2025-2 6 season) 2025 06/13/2021, 08/09/2020 Influenza Vaccine (#1) 2025 Pneumococcal vaccine <65 Aged Out No longer eligible based on patient's age to complete this topic Insurance [facility] O [facility] O Care Teams Louver Door Assembler Relationship Specialty Start Date End Date Guy Hdez MD [address] [place] [address] PCP - General Internal Medicine 08/15/21 Jazlyn Peters OT [address] [facility] [address] [facility] [address] [place] [address] Occupational Therapist Occupational Therapy 02/09/22
--- OUTSIDE RECORDS SUMMARY | 2025-04-01 10:15 | XMS_ITS | Clinical Summary ---
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
[2025-04-01 10:30] LABS: Alanine Aminotransferase 18 U/L (6-35); Albumin Level 3.8 g/dL (3.5-5.1); Alkaline Phosphatase 73 U/L (38-126); Anion Gap 7 mmol/L (4-12); Aspartate Amino Transferase 26 U/L (14-36); Bilirubin,Total 0.7 mg/dL (0.2-1.3); Blood Urea Nitrogen 12 mg/dL (7-17); Calcium 8.7 mg/dL (8.4-10.2); Carbon Dioxide 23 mmol/L (22-30); Chloride 108 mmol/L (98-107); Cholesterol 171 mg/dL (0-200); Estimated Glomerular Filt Rate > 60; Glucose 93 mg/dL (65-110); HDL Direct 40 mg/dL; Potassium 4.1 mmol/L (3.4-5.0); Sodium 138 mmol/L (137-145); Total Protein 6.8 g/dL (6.3-8.2); Triglycerides 96 mg/dL (<150)
[2025-04-01 10:37] LABS: Hemoglobin A1C 4.5 % (<5.7)
[2025-04-01 11:02] LABS: Thyroid Stimulating Hormone Reflex 1.200 uIU/mL (0.465-4.68)
== END 2025-04-01 09:31 | disposition home or self-care (01) ==
LOC: ANHLAB 09:31
PROVIDERS: PCP Family Medicine; Visit Provider Family Medicine
DX: Z13.1 Encounter for screening for diabetes mellitus (principal); R63.5 Abnormal weight gain; Z68.43 Body mass index [BMI] 50.0-59.9, adult; Z13.6 Encounter for screening for cardiovascular disorders
CPT/HCPCS: 36415; 80053; 80061; 83036; 84443